=== PATIENT | male | born 1990 | race Hispanic/Latino ===

== ENCOUNTER 2017-07-23 01:09 | Emergency (ER) | payer SELFPAY ==
[~2017-07-23] VITALS: Ht 165.1 cm; Wt 68.0 kg
[2017-07-23 08:41] VITALS: BP 129/83
== END 2017-07-23 08:42 | disposition short-term general hospital (02) | DRG 159 ==
LOC: ED 01:09
DX: S02.69XA Fracture of mandible of other specified site, initial encounter for closed fracture (principal); S03.2XXA Dislocation of tooth, initial encounter; S01.512A Laceration without foreign body of oral cavity, initial encounter; F17.210 Nicotine dependence, cigarettes, uncomplicated; Y92.009 Unspecified place in unspecified non-institutional (private) residence as the place of occurrence of the external cause; W22.8XXA Striking against or struck by other objects, initial encounter

== ENCOUNTER 2019-04-21 | Emergency (ER) | payer SELFPAY ==
[2019-04-21] MEDS ORDERED: KEFLEX500 M1 PO (13:28)
== END 2019-04-21 15:30 | disposition home or self-care (01) | DRG 603 ==
DX: L03.114 Cellulitis of left upper limb (principal); L98.9 Disorder of the skin and subcutaneous tissue, unspecified; F17.210 Nicotine dependence, cigarettes, uncomplicated